=== PATIENT | male | born 1955 | race Two or more races ===

== ENCOUNTER 2017-09-14 21:00 | Emergency (ER) | payer BC ==
[2017-09-14] MEDS: BENOXINATE HCL/FLUORESCEIN SOD 5 ML OPHTH RIGHT EYE (23:47)
[2017-09-15] MEDS: FLUORESCEIN STRIP RIGHT EYE (00:56)
== END 2017-09-15 01:01 | disposition home or self-care (01) ==
LOC: FTE 09-15 01:01
DX: H10.9 Unspecified conjunctivitis (principal); E11.9 Type 2 diabetes mellitus without complications; Z79.84 Long term (current) use of oral hypoglycemic drugs; Z87.891 Personal history of nicotine dependence
CPT/HCPCS: 99284